=== PATIENT | male | born 1945 | race Caucasian/White ===

== ENCOUNTER 2017-08-17 08:20 | Observation (INO) | payer OTHER, MEDICARE ==
[~2017-08-17] VITALS: Ht 175.3 cm; Wt 101.0 kg
[2017-08-17 09:37] LABS: HEMATOCRIT 43.8 % (38.0-50.0); MCH 31.3 PG (29.0-34.0); MCHC 34.2 G/DL (30.0-36.0); MCV 91.4 FL (86-99); MEAN PLAT.VOLUME 8.8 uM^3 (9.0-12.4); PLATELET COUNT 324 K/uL (156-360); RBC DIS.WIDTH-CV 12.2 % (11.8-14.6); RBC DIS.WIDTH-SD 41.2 % (39-53); RED BLOOD COUNT 4.79 M/uL (4.00-5.50); WHITE BLOOD COUNT 7.1 K/uL (4.1-10.2)
[2017-08-17 09:44] LABS: CHLORIDE 107 mEq/L (99-109); POTASSIUM 4.3 mEq/L (3.7-5.4); SODIUM 138 mEq/L (136-147)
[2017-08-17 09:46] LABS: GLUCOSE 163 mg/dL (70-99)
[2017-08-17 09:47] LABS: ANION GAP 11 MEQ/L (2-14)
[2017-08-17 09:51] LABS: GFR ESTIMATE (CALCULATED) > 59 mL/min/; UREA NITROGEN (BUN) 17 mg/dL (9-23)
[2017-08-17] MEDS ORDERED: VENTOLIN HFA18 GM IH (14:09)
[2017-08-17] MEDS ORDERED: PROVENTIL,2.5 MG/3 M IH (14:09)
[2017-08-17] MEDS ORDERED: CLARITIN,ALAVAR10 MG PO (14:10)
[2017-08-17] MEDS ORDERED: SUDAFED 12-HOU120 MG PO (14:10)
[2017-08-17] MEDS ORDERED: NEXIUM20 MG PO (14:10)
[2017-08-17] MEDS ORDERED: FLONASE16 G1 BOTH NARES (14:10)
[2017-08-17] MEDS ORDERED: POTASSIUM CITR10 MEQ PO (14:11)
[2017-08-17] MEDS ORDERED: THERA1 EAC2 PO (14:11)
[2017-08-17] MEDS ORDERED: SAW PALMETTO500 MG PO (14:12)
[2017-08-17] MEDS ORDERED: MAGOX 400400 MG PO (14:12)
[2017-08-17] MEDS ORDERED: GLUCOSAMINE &1 EAC1 PO (14:12)
[2017-08-17] MEDS ORDERED: FISH OIL 1,0001 EAC7 PO (14:12)
[2017-08-17] MEDS ORDERED: VITAMIN D31000 UNIT PO (14:13)
[2017-08-17] MEDS ORDERED: SUPER CALCIUM600 MG PO (14:13)
[2017-08-17 14:31] VITALS: BP 159/99
[2017-08-17 16:13] LABS: HEMATOCRIT 42.2 % (38.0-50.0); MCHC 33.9 G/DL (30.0-36.0); MCV 91.5 FL (86-99); MEAN PLAT.VOLUME 8.6 uM^3 (9.0-12.4); PLATELET COUNT 323 K/uL (156-360); RBC DIS.WIDTH-CV 12.3 % (11.8-14.6); RBC DIS.WIDTH-SD 41.4 % (39-53); RED BLOOD COUNT 4.61 M/uL (4.00-5.50); WHITE BLOOD COUNT 6.9 K/uL (4.1-10.2)
[2017-08-17 16:26] LABS: Estimated Average Glucose 128 mg/dL (70-123); HEMOGLOBIN A1c (GLYCOHEMOGLOB) 6.1 % HGB (Below 5.7)
[2017-08-17 16:33] LABS: TROP-I INTERPRETATION NEGATIVE; TROPONIN-I < 0.01 ng/mL (0.0-0.30)
[2017-08-17 16:36] LABS: HDL CHOLESTEROL 44 MG/DL (Desirable>=40); LDL CHOLESTEROL 99 mg/dL (Desirable<100); NON-HDL CHOLESTEROL 129 mg/dL (Desirable<160); TOTAL CHOLESTEROL 173 mg/dL (Desirable<200); TRIGLYCERIDES 148 MG/DL (Normal: <150)
[2017-08-17 19:37] VITALS: BP 154/85
[2017-08-17 23:29] VITALS: BP 165/86
[2017-08-18] MEDS ORDERED: PREDNISONE10 MG PO (12:39)
== END 2017-08-18 13:11 | disposition home or self-care (01) ==
LOC: EME 08:20 → EDOF 13:34 → ENRESERV 13:36 → 5WEST 14:18 → ENPENDDIS 08-18 → 5WEST 08-18 13:11
PROVIDERS: Hospitalist
DX: R27.0 Ataxia, unspecified (principal); H81.90 Unspecified disorder of vestibular function, unspecified ear; G43.909 Migraine, unspecified, not intractable, without status migrainosus; R11.2 Nausea with vomiting, unspecified; J45.909 Unspecified asthma, uncomplicated; Z79.82 Long term (current) use of aspirin; Z87.11 Personal history of peptic ulcer disease; Z80.9 Family history of malignant neoplasm, unspecified; Z82.49 Family history of ischemic heart disease and other diseases of the circulatory system
CPT/HCPCS: 70450; 70544; 70549; 70551; 71020; 80048; 80061; 83036; 84484; 85027; 93005; 99202; 99281; 99285; G0378; G8987 GO CJ; G8988 CI; G8989 CJ; J1650; J2060; J2405; J2930; J7030; J7040